=== PATIENT | male | born 1975 | race Caucasian/White ===

== ENCOUNTER 2018-01-18 04:10 | Emergency (ER) | payer OTHER ==
[2018-01-18] MEDS ORDERED: Lidocaine 2% EPI 1:200000 MPF*10-20 ML VIAL ONE (04:28)
--- NOTE | 2018-01-18 05:11 | ED ---
Laceration/Wound HPI - HPI Summary HPI Summary: This is bella Mejía documenting for attending Dr. Isaías Ortiz This patient is a 43 year old M presenting to [facility] accompanied by a rn correctional with a chief complaint of head injury since 214. Pt claims he was sleeping, fell out of bed due to nightmare, allegedly hit his head against metal desk. Pt endorses pain at 9/10 intensity. - History of Current Complaint Stated Complaint: HEAD LAC Hx Obtained From: Patient Mechanism of Injury: Sharp/Blunt Trauma Onset/Duration: Sudden Onset, Still Present Aggravating: Nothing Alleviating: Nothing Timing: Constant Onset Severity: Severe Current Severity: Severe Pain Intensity: 9 Pain Scale Used: 0-10 Numeric Associated Signs & Symptoms: Redness, Pain, Bruising - Allergy/Home Medications Allergies/Adverse Reactions: Allergies Allergy/AdvReac Type Severity Reaction Status Date / Time Penicillins Allergy Unknown Verified 01/18/18 04:13 Reaction Details Home Medications: Home Medications NK [No Home Medications Reported] 01/18/18 [History Confirmed 01/18/18] PMH/Surg Hx/FS Hx/Imm Hx Sensory History: Denies: Hx Legally Blind, Hx Deafness Opthamlomology History: Denies: Hx Legally Blind EENT History: Denies: Hx Deafness Psychiatric History: Denies: Hx Panic Disorder - Immunization History Date of Tetanus Vaccine: utd Date of Influenza Vaccine: none Infectious Disease History: No Infectious Disease History: Denies: Traveled Outside the [place] in Last 30 Days - Family History Known Family History: Negative: Blood Disorder - Social History Occupation: Unemployed Lives: Dormitory/Roommates - [employer] Alcohol Use: None Substance Use Type: Reports: None Hx Tobacco Use: Yes Smoking Status (MU): Heavy Every Day Tobacco Smoker Review of Systems Negative: Fever Positive: Bruising, Other - laceration forehead, vertex. Positive: Headache All Other Systems Reviewed And Are Negative: Yes Physical Exam - Summary Physical Exam Summary: VITAL SIGNS: Reviewed. GENERAL: Patient is a well-developed and nourished male who is lying comfortable in the stretcher. Patient is not in any acute respiratory distress. HEAD AND FACE: 3 cm laceration of skull over vertex, 6 cm laceration over left forehead. No ecchymosis, hematomas or skull depressions. No sinus tenderness. EYES: PERRLA, EOMI x 2, No injected conjunctiva, no nystagmus. EARS: Hearing grossly intact. Ear canals and tympanic membranes are within normal limits. MOUTH: Oropharynx within normal limits. NECK: Supple, trachea is midline, no adenopathy, no JVD, no carotid bruit, no c- spine tenderness, neck with full ROM. CHEST: Symmetric, no tenderness at palpation LUNGS: Clear to auscultation bilaterally. No wheezing or crackles. CVS: Regular rate and rhythm, S1 and S2 present, no murmurs or gallops appreciated. ABDOMEN: Soft, non-tender. No signs of distention. No rebound no guarding, and no masses palpated. Bowel sounds are normal. EXTREMITIES: FROM in all major joints, no edema, no cyanosis or clubbing. NEURO: Alert and oriented x 3. No acute neurological deficits. Speech is normal and follows commands. SKIN: Dry and warm, 3 cm laceration of skull over vertex, 6 cm laceration over left forehead. Triage Information Reviewed: Yes Vital Signs On Initial Exam: Initial Vitals Temp Pulse Resp BP Pulse Ox 99 F 76 15 112/92 96 01/18/18 04:13 01/18/18 04:13 01/18/18 04:13 01/18/18 04:13 01/18/18 04:13 Vital Signs Reviewed: Yes Procedures - Laceration/Wound Repair 2 Location: head Description: Linear Anesthesia: Local, 2.0%, Epi Length, Depth and Shape: 6 cm laceration of skull over left forehead Betadine Prep?: Yes Laceration/Wound Explored: clean, no foreign body removed Closure: Multilayer - 4 stitches inner layer chromic gut, 14 outer layer nylon. Debridement: none Suture Type: Nylon, Chromic Number of Sutures: 18 Layer Closure?: Yes Sterile Dressing Applied?: Yes 1 Location: head Description: Linear Anesthesia: Local, 2.0%, Epi Length, Depth and Shape: 3 cm laceration of skull over vertex. Betadine Prep?: Yes Irrigated w/ Saline (ccs): 200 Laceration/Wound Explored: clean, no foreign body removed Closure: [place] #__ - 10 Debridement: none Number of Sutures: 0 Layer Closure?: Yes Sterile Dressing Applied?: Yes Diagnostics - Vital Signs Vital Signs Temp Pulse Resp BP Pulse Ox 01/18/18 04:13 99 F 76 15 112/92 96 - Laboratory Lab Statement: Any lab studies that have been ordered have been reviewed, and results considered in the medical decision making process. Laceration Repair Course/Dx - Course Course Of Treatment: A 43-year-old M presents to the ED with a CC of head injury since 214. (+)CARVER, lacerations. Pt was in top bunk, had nightmare and fell out of bed, hitting head on edge of metal desk. Procedures: lac repair scalp 10 saurabh, lidocaine 2 % wiht epi, 200 cc with epi, no FB seen. left forehead, inner layer 4 stiches chromic gut, outer 14 stitches nylon 5.0, lidocaine 2, no FB seen - Differential Dx Differental Diagnoses: Laceration Discharge - Sign-Out/Discharge Documenting (check all that apply): Patient Departure - discharge - Discharge Plan Condition: Stable Disposition: LAW ENFORCEMENT/COURT Patient Education Materials: Head Injury (ED), Facial Laceration (ED) Referrals: Diamond URIOSTEGUI,Bala Payton [Primary Care Provider] - Additional Instructions: Return to the emergency department for any new or worsening symptoms. For face and scalp lacerations: have stitches removed in 1 week, saurabh in 2 weeks. - Billing Disposition and Condition Condition: STABLE Disposition: Law Enforcement/Court
[2018-01-18 05:30] VITALS: BP 133/77
== END 2018-01-18 05:29 ==
LOC: ED 04:10
DX: S01.81XA Laceration without foreign body of other part of head, initial encounter (principal); W06.XXXA Fall from bed, initial encounter; Y92.9 Unspecified place or not applicable; Z88.0 Allergy status to penicillin; R51 Headache; F17.210 Nicotine dependence, cigarettes, uncomplicated
CPT/HCPCS: 12002; 99282